=== PATIENT | female | born 1955 | race Caucasian/White ===

== ENCOUNTER 2017-05-28 11:59 | Observation (INO) | payer BC ==
[2017-05-28 12:35] LABS: #Basophils 0.1 thou/uL (0.0-0.2); #Eosinphils 0.1 thou/uL (0.0-0.7); #Lymphocytes 3.1 thou/uL (1.20-3.40); #Monocytes 0.5 thou/uL (0.11-0.59); #Neutrophils 5.4 thou/uL (1.40-6.50); %Basophils 0.9 % (0.0-1.0); %Eosinophils 1.3 % (0.0-10.0); %Lymphocytes 33.5 % (21.0-51.0); %Monocytes 5.7 % (0.0-10.0); Hematocrit 44.9 % (36.0-47.0); Mean Platelet Volume 7.3 fL (7.4-10.4); Red Blood Cell (RBC) Count 4.71 mill/uL (4.20-5.40); White Blood Cell (WBC) Count 9.3 thou/uL (4.8-10.8)
--- NOTE | 2017-05-28 12:49 | RAD ---
AP VIEW CHEST: 05/28/2017 HISTORY: Chest pain. FINDINGS: The lungs are well aerated. No evidence of active intrathoracic disease is seen. No evidence of ef fusions, pneumonia, or pneumothorax is seen. IMPRESSION: Unremarkable anterior-posterior view chest. POS: [facility]
[2017-05-28 13:02] LABS: ALT (SGPT) 21 U/L (8-55); AST (SGOT) 21 U/L (5-34); Alkaline Phosphatase 57 U/L (40-150); Anion Gap 14 mmol/L (10-20); BUN (Urea Nitrogen) 12 mg/dL (9.8-20.1); Bilirubin, Total 0.5 mg/dL (0.2-1.2); CK (CPK) 142 U/L (29-168); Calc. Creatinine Clearance 0 mL/min (70-130); Calcium 9.8 mg/dL (7.8-10.44); Carbon Dioxide 26 mmol/L (22-29); Chloride 103 mmol/L (98-107); Estimated GFR-MDRD 87; Globulin 3.4 g/dL (2.4-3.5); Protein, Total 7.5 g/dL (6.0-8.3)
[2017-05-28 13:04] LABS: Troponin I Less than 0.010 ng/mL (< 0.028)
[2017-05-28] MEDS ORDERED: Nitroglycerin 2% Ointment 1 INCH/1 GM Packet ONE (13:24)
[2017-05-28 15:17] VITALS: BMI 42.5
[2017-05-28] MEDS ORDERED: Calcium Carbonate 500 MG ChewTAB PO PRN (15:19)
[2017-05-28] MEDS ORDERED: Ondansetron HCl/PF 4 MG/2 ML Vial IVP PRN (15:19)
[2017-05-28] MEDS ORDERED: Nitroglycerin 0.4 MG TAB (25 Tab Bottle) PO PRN (15:19)
[2017-05-28] MEDS ORDERED: HumaLOG 300 UNITS/3 ML VIAL SC PRN (15:19)
[2017-05-28] MEDS ORDERED: Dextrose 5% in Water 1,000 ML IV PRN (15:19)
[2017-05-28] MEDS ORDERED: Acetaminophen 325 MG TAB PO PRN (15:19)
[2017-05-28] MEDS ORDERED: Ondansetron ODT 4 MG TAB PO PRN (15:19)
[2017-05-28] MEDS ORDERED: Dextrose 50% Abboject 50 ML SYRINGE SLOW IVP PRN (15:19)
[2017-05-28 15:53] LABS: Hemoglobin A1c 5.5 % (4.0-6.0)
[2017-05-28] MEDS ORDERED: ISOVUE-370 76%-LOCM 1 ML ONE (16:30)
[2017-05-28] MEDS ORDERED: FLU VACC QS2017-18 36 mo. & older 0.5 ML SYRINGE IM ONE (17:30)
--- NOTE | 2017-05-28 17:34 | CT ---
CTA OF THE THORAX INVOLVING IV CONTRAST PE PROTOCOL AND 3D REFORMATTED IMAGING 05/28/17 INDICATION: Chest pain. COMPARISON: Prior exam dated 02/23/14. FINDINGS: No central or segmental pulmonary embolus is evident. Heart and great vessels appear within normal l imits. There are mild vascular calcification involving the aortic arch. No air space consolidation, pleural effusion or pneumothorax is evident. The visualized upper abdomen demonstrates normal appearing adrenal glands. Remaining upper abdomen r eveals no acute abnormality. There is scattered degenerative and osteoarthritic change. IMPRESSION: No central or segmental pulmonary embolus demonstrated. POS: [facility]
[2017-05-28 19:39] LABS: Troponin I Less than 0.010 ng/mL (< 0.028)
--- NOTE | 2017-05-28 20:36 | HP-2 ---
CODE STATUS: FULL. PRIMARY CARE PHYSICIAN: [facility] call (Dr. Pettit). ATTENDING PHYSICIAN: Dr. Beach. HISTORIAN: Patient. CHIEF COMPLAINT: Chest pain and shortness of breath. HISTORY OF PRESENT ILLNESS: This is a 61-year-old female with past medical history of hypertension, type 2 diabetes, hyperlipidemia as well as tobacco abuse. She has on onset of chest pain prior to presentation in the ER. The patient states she was playing with her grandkids when she bent over, s he first noticed onset of chest pain with mild radiation to her left shoulder along with some shortn ess of breath. The chest pain lasted a few minutes at that time and each subsequent episode lasted 2-3 minutes and has resolved on its own. The patient denies any nausea, vomiting, fevers, chills, h eadaches or diaphoresis with these episodes. Patient received nitropatch and aspirin in the ER, did not notice much improvement or worsening with these interventions. Of note, the patient had a stre ss test performed in 2013 that was read as normal. The patient also had an echo with that same hosp italization and had a noted EF of 60% to 65%. Currently, the patient denies any chest pain, stating this has resolved on its own. PAST MEDICAL HISTORY: 1. Hypertension. 2. Type 2 diabetes. 3. Hyperlipidemia. 4. Depression. 5. Anemia. PAST SURGICAL HISTORY: 1. Cholecystectomy. 2. C-sections x2. ALLERGIES: No known drug allergies. MEDICATIONS: Lisinopril and hydrochlorothiazide 10/12.5 mg. FAMILY HISTORY: Significant for heart disease. Two brothers with MRI, status post CABG and stentin g. SOCIAL HISTORY: Endorses tobacco and alcohol use socially and still smokes less than half pack a we ek. Denies any drug use. REVIEW OF SYSTEMS: Ten-point review of systems was performed and negative except as per HPI above. PHYSICAL EXAMINATION: VITAL SIGNS: BP 145/60, pulse 78, respirations 18, T-max 98.3, pulse ox 98% on room air and current weight 108 kilograms. GENERAL: Alert and oriented x3, in no acute distress, obese female who is appropriately interactive . EYES: Pupils are equal, round and reactive to light. Extraocular movements are intact. Conjunctiv ae within normal limits. ENT: Nasal mucosa and oropharynx are within normal limits. NECK: Supple, without lymphadenopathy. CARDIOVASCULAR: Regular rate and rhythm. No murmurs, rubs or gallops. Radial pulses and pedal pul ses are present. RESPIRATORY: Normal effort. No retractions. Clear to auscultation bilaterally. SKIN: Warm and dry without cyanosis or lesions. ABDOMEN: Soft and nontender to palpation. Bowel sounds present. No mass or distention appreciated . EXTREMITIES: No clubbing, cyanosis or edema. MUSCULOSKELETAL: Structure and tone within normal limits. Strength is 5/5. Full range of motion n oted. NEUROLOGIC: No deficits. Sensation within normal limits. Cranial nerves II-XII are intact. GCS 1 5. PSYCHIATRIC: Appropriate. LABORATORY AND IMAGING DATA: CBC: White count 9.3, hemoglobin 14.7, hematocrit 44.7 and platelets 231. CMP: Sodium 129, potassium 3.9, chloride 103, bicarbonate 26, BUN 12, creatinine 0.69, glucose 93, calcium 9.8, total protein 7.5, albumin 4.1, AST is 21, ALT is 21, alkaline phosphatase 57 and total bilirubin 0.5. D-dimer 2.5. CK 142 and troponin less than 0.01 1. EKG showed normal sinus rhythm at rate of 72 beats per minute. No ST changes, no T-wave abnormaliti es. Chest x-ray shows no acute disease, potentially mild cardiomegaly. ASSESSMENT AND PLAN: This is a 61-year-old female presenting with chest pain and shortness of breat h. 1. Atypical chest pain. We will observe on telemetry and follow up CTA which ordered secondary to an elevated D-dimer ordered in the ER due to her complained of shortness of breath, which continued to trend cardiac enzymes. Check TSH, magnesium phosphatase, fasting lipid panel. Patient's heart s core is 3. JUANCARLOS risk score is 2. Her Wells score is 0. We will repeat EKG, nitrate p.r.n. for remi st pain, as well as aspirin and statin for risk stratification. 2. Hypertension. Continue home HCTZ combo. 3. Type 2 diabetes. Diabetic diet. Accu-Cheks before meals and at bedtime and check A1c. 4. Hyperlipidemia. Start on statin. 5. Prophylaxis. Sequential compression devices. DISPOSITION AND LENGTH OF HOSPITAL STAY: Less than 2 midnights. Symptomatic medications will be pr ovided. History and physical exam as well as management discussed with Dr. Beach.
[2017-05-29 05:19] LABS: Anion Gap 10 mmol/L (10-20); BUN (Urea Nitrogen) 13 mg/dL (9.8-20.1); Calc. Creatinine Clearance 148 mL/min (70-130); Calcium 9.5 mg/dL (7.8-10.44); Carbon Dioxide 27 mmol/L (22-29); Chloride 103 mmol/L (98-107); Cholesterol 165 mg/dl (< 200 Desired); Estimated GFR-MDRD 90; LDL Cholesterol, Calculated 104 mg/dL
--- NOTE | 2017-05-29 08:00 | PDOC.FM ---
- Subjective Subjective: Patient states she had a good night. She got some good rest. She denies any more of the chest pain or back pain she had yesterday. She denies sob, n/v/d, fevers, chills, or cough. She will be going for a stress test this AM. - Objective Vital Signs & Weight: Vital Signs (12 hours) Temp Pulse Resp BP Pulse Ox 05/29/17 04:30 98.6 F 86 18 119/61 95 05/29/17 01:04 94 L Weight Weight 105.318 kg I&O: 05/28/17 05/29/17 05/30/17 06:59 06:59 06:59 Intake Total 2049 Output Total 250 Balance 1800 Result Diagrams: 05/28/17 12:24 05/29/17 04:33 <Richie Ronquillo - Last Filed: 05/29/17 07:58> - Objective Vital Signs & Weight: Vital Signs (12 hours) Temp Pulse Resp BP BP Pulse Ox 05/29/17 08:38 70 118/62 05/29/17 07:45 98.2 F 70 16 118/62 93 L 05/29/17 04:30 98.6 F 86 18 119/61 95 05/29/17 01:04 94 L Weight Weight 105.318 kg I&O: 05/28/17 05/29/17 05/30/17 06:59 06:59 06:59 Intake Total 2049 Output Total 250 Balance 1800 Result Diagrams: 05/28/17 12:24 05/29/17 04:33 <Jonathan Marie - Last Filed: 05/29/17 11:47> Phys Exam - Physical Examination HEENT: PERRLA, moist MMs Neck: no nodes, no JVD Respiratory: no wheezing, clear to auscultation bilateral Cardiovascular: RRR, no significant murmur Gastrointestinal: soft, non-tender, no distention, positive bowel sounds Musculoskeletal: no edema, pulses present Neurological: non-focal, normal sensation, moves all 4 limbs Lymphatic: no nodes Psychiatric: normal affect, A&O x 3 <Richie Ronquillo - Last Filed: 05/29/17 07:58> Dx/Plan (1) Atypical chest pain Code(s): R07.89 - OTHER CHEST PAIN Status: Acute Plan: -Tele monitoring- Normal sinus rhythm over night. -Stress test this AM. -Pain resolved. -Continue ASA (2) HTN (hypertension) Code(s): I10 - ESSENTIAL (PRIMARY) HYPERTENSION Status: Acute Plan: Continue home meds. (3) DM2 (diabetes mellitus, type 2) Status: Acute Plan: Sliding scale insulin. (4) Anxiety Code(s): F41.9 - ANXIETY DISORDER, UNSPECIFIED Status: Acute Plan: -Not medicated. -Not currently having problems, will monitor. - Plan Plan: If stress test normal will be discharged today. <Richie Ronquillo - Last Filed: 05/29/17 07:58> Attending Addendum - Attending Addendum I personally evaluated the patient and discussed the management with Dr. Ronquillo. I agree with the History, Examination, Assessment and Plan documented above with any addition or exceptions noted below. Lungs: CTA, Cor: RRR no murmur, gallop click or rub. Left Chest wall is mildly tender especially over the left lower costal margin. Nuclear Stress is negative for ischemia. Will d/c home on Naproxen 500 bid and because of diabetes and hypertension start low dose statin therapy. And her lisinopril for HTN. Follow up with her PCP, Dr. Greer. [facility] <Jonathan Marie - Last Filed: 05/29/17 11:47>
[2017-05-29] MEDS ORDERED: Lisinopril/Hydrochlorothiazide 10 mg/12.5 mg Tablet PO SCH (09:00)
[2017-05-29] MEDS ORDERED: Aspirin 325 MG TAB PO SCH (09:00)
--- NOTE | 2017-05-29 11:19 | NM ---
CARDIAC SPECT: CLINICAL HISTORY: 61-year-old female with chest pain, hypertension, diabetes mellitus, dyslipidemia, and is a smoker. TECHNIQUE: A stress-only myocardial perfusion scan was performed following the intravenous administration of 31 mCi technetium-99m sestamibi. Pharmacologic stress with Adenosine was monitored and interpreted by Dr. Oakes. FINDINGS: Homogeneous tracer distribution is seen in the myocardial segments on the post stress images. GATED SPECT LVEF: 82%. WALL MOTION EXAM: Normal. IMPRESSION: Normal post stress myocardial perfusion scan. POS: [facility]
[2017-05-29] MEDS ORDERED: ADENOSINE 60 MG/20 ML VIAL ONE (12:00)
[2017-05-29 12:11] VITALS: BP 138/63; TEMP 98.3
--- NOTE | 2017-05-30 01:07 | DIS-2 ---
DATE OF ADMISSION: 05/28/2017 DATE OF DISCHARGE: 05/29/2017 RESIDENT: Dr. Ronquillo. ADMITTING ATTENDING: Dr. Beach. DISCHARGE ATTENDING: Dr. Marie. CONSULTATIONS: None. PROCEDURES: She did have a Pharm Cardiolite stress test. PRIMARY DIAGNOSES: 1. Costochondritis. 2. Hypertension. 3. Diabetes mellitus. 4. Anxiety. DISCHARGE MEDICATIONS: 1. Lisinopril/hydrochlorothiazide 10-12.5 mg. 2. Lovastatin 20 mg. 3. Naproxen 500 mg. DISCONTINUED MEDICATIONS: None. HISTORY OF PRESENT ILLNESS AND HOSPITAL COURSE: This is a 61-year-old female with a past medical history of hypertension, type 2 diabetes, hyperlipidemia as well as tobacco abuse. She has an onset of chest pain prior to presentation in the ER. The patient states she was playing with her grandkids when she bent over, and she first noticed the onset of chest pain with mild radiation to her left shoulder along with some shortness of breath. The chest pain lasted a few minutes at that time, and each subsequent episode lasted 2-3 minutes and has resolved on its own. The patient denies any nausea, vomiting, fevers, chills, headaches or diaphoresis with these episodes. The patient received Nitro-Patch and aspirin in the ER, did not notice much improvement or worsening with these interventions. Of note, the patient had a stress test performed in 2013 that was read as normal. The patient also had an echo at the same hospitalization, and had noted EF of 60%-65%. Currently, the patient denies any chest pain, stating this has resolved on its own. During the hospitalization, she went for the Cardiolite stress test, and that was read as normal again. The stress test shows homogeneous tracer distribution seen in the myocardial segments in the post-stress images. Gated SPECT LVEF 82%. Wall motion exam was normal and impression shows a normal post-stress myocardial perfusion scan. The patient was asymptomatic during this hospitalization, was always in normal sinus rhythm , had no more of the chest pain, did have some tenderness to palpation over her left thorax. We are working with the diagnosis of costochondritis, and we will put her on some nonsteroidal anti-inflammatory medications going forward to see if that will resolve the pain. The patient was then started on a lovastatin because of her risk factors for coronary artery disease, so she was started on low intensity statin therapy, lovastatin 20 mg, and she will follow up as an outpatient with her primary care provider. She did have labs, of note. She had troponins of less than 0.01 x3. Her triglycerides were 141. Her cholesterol was 165. Her LDL was 104. Her HDL was 33. She did have glucose of 112 and hemoglobin A1c of 5.5. The patient otherwise tolerated the hospitalization well with no complications. She will be discharged in satisfactory condition. DISPOSITION: Stable. DISCHARGE INSTRUCTIONS: 1. Location: She will be discharged home into her own care. 2. Diet: Will be a heart healthy and a diabetic diet. 3. Activity: Will be as tolerated without any restrictions. 4. Followup: Will be with her primary care physician, Dr. Pettit within 7 days to discuss the long-term treatment and her recent hospitalization. [facility]ECTOR
--- NOTE | 2017-05-30 06:28 | EKG ---
Test Reason : TIMED Blood Pressure : / mmHG Vent. Rate : 077 BPM Atrial Rate : 077 BPM P-R Int : 170 ms QRS Dur : 074 ms QT Int : 384 ms P-R-T Axes : 022 018 079 degrees QTc Int : 434 ms Normal sinus rhythm Normal ECG When compared with ECG of 23-FEB-2014 10:55, Nonspecific T wave abnormality no longer evident in Inferior leads Nonspecific T wave abnormality now evident in Lateral leads Confirmed by YUE MARTINEZ ([id number]) on 05/30/2017 6:27:56 AM Referred By: RODRIGO Confirmed By:YUE MARTINEZ
--- NOTE | 2017-06-20 13:05 | EKG ---
Test Reason : Blood Pressure : / mmHG Vent. Rate : 075 BPM Atrial Rate : 075 BPM P-R Int : 176 ms QRS Dur : 082 ms QT Int : 380 ms P-R-T Axes : 025 015 062 degrees QTc Int : 424 ms Normal sinus rhythm Normal ECG Confirmed by PLACIDO OLIVEIRA M.D. ([id number]), rewrite editor GAMALIEL CASTRO ([id number]) on 06/20/2017 1:04:54 PM Referred By: Confirmed By:PLACIDO OLIVEIRA M.D.
--- NOTE | 2017-07-29 12:51 | STRESS ---
Acquisition Time: 2017-05-29 09:16:02 Total Exercise Time: 00:04:00 Test Indications: CHEST PAIN Medications: Protocol: ADENOSINE Max HR: 093 BPM 58% of Pred: 160 BPM Max BP: 124/072 mmHG Max Work Load: 1.0 METS RESTING ECG: NORMAL SINUS RHYTHM AT 74 BPM WITH EARLY R-WAVE TRANSITION SYMPTOMS: NONE NORMAL BP RESPONSE ECTOPY: NONE ECG STRESS: NO SIGNIFICANT CHANGES INTERPRETATION: NEGATIVE ECG/AWAIT NUCLEAR IMAGES FOR DEFINITIVE DIAGNOSIS Confirmed by DR. Nan LEW ([id number]), editor farm journal CARLEY PADILLA ([id number]) on 07/29/2017 12:50:28 PM Referred By: MD Josefina VINCENT Confirmed By:DR. Nan LEW
== END 2017-05-29 12:58 | disposition home or self-care (01) ==
LOC: ERS 11:59 → 2SW 13:30
PROVIDERS: ADMIT Family Medicine; ATTEND Family Medicine
DX: M94.0 Chondrocostal junction syndrome [Tietze] (principal); I10 Essential (primary) hypertension; E11.9 Type 2 diabetes mellitus without complications; E78.5 Hyperlipidemia, unspecified; F41.9 Anxiety disorder, unspecified; F32.9 Major depressive disorder, single episode, unspecified; F17.210 Nicotine dependence, cigarettes, uncomplicated; Z79.899 Other long term (current) drug therapy; Z90.49 Acquired absence of other specified parts of digestive tract; Z98.891 History of uterine scar from previous surgery
CPT/HCPCS: 36415; 36416; 71010; 71275; 78452; 80048; 80053; 80061; 82553; 83036; 83735; 84100; 84443; 84484; 85025; 85379; 90471; 90682; 93005; 93010; 93017; 94760; A4216; A9500; G0008; G0378; J0153; Q2036

== ENCOUNTER 2017-10-14 20:30 | Outpatient (CLI) | payer BC | END 2017-10-14 20:31 | disposition home or self-care (01) | LOC: SLEEPLAB 20:30 | PROVIDERS: ATTEND Internal Medicine Critical Care Medicine | DX: G47.33 Obstructive sleep apnea (adult) (pediatric) (principal); I10 Essential (primary) hypertension | CPT/HCPCS: 95811 ==

== ENCOUNTER 2018-03-15 17:42 | Inpatient (IN) | payer BC ==
[~2018-03-15 17:42] MED LIST: ISOVUE-370 76%-LOCM 1 ML ONE
[2018-03-15 18:16] LABS: #Basophils 0.1 thou/uL (0.0-0.2); #Eosinphils 0.1 thou/uL (0.0-0.7); #Monocytes 0.6 thou/uL (0.11-0.59); #Neutrophils 6.9 thou/uL (1.40-6.50); %Basophils 0.7 % (0.0-1.0); %Eosinophils 1.3 % (0.0-10.0); %Monocytes 5.7 % (0.0-10.0); %Neutrophils 64.3 % (42.0-75.0); Hemoglobin 14.8 g/dL (12.0-16.0); Mean Corpuscular HGB CONC 36.4 g/dL (32.0-36.0); Mean Corpuscular Hemoglobin 33.3 pg (27.0-31.0); Mean Corpuscular Volume 91.4 fL (78.0-98.0); Mean Platelet Volume 7.5 fL (7.4-10.4); Platelet Count 223 thou/uL (130-400); RBC Distribution Width 11.9 % (11.5-14.5); Red Blood Cell (RBC) Count 4.44 mill/uL (4.20-5.40); White Blood Cell (WBC) Count 10.7 thou/uL (4.8-10.8)
[2018-03-15 18:22] LABS: INR-International Normal Ratio 0.9; PTT 32.3 SEC (22.9-36.1); Prothrombin Time 12.6 SEC (12.0-14.7)
--- NOTE | 2018-03-15 18:30 | RAD ---
PORTABLE CHEST: History: Chest pain. Arm numbness. Comparison: 05-28-17 FINDINGS: The heart is mildly enlarged. There is mild vascular engorgement, stable. No infiltrate or significan t effusion. IMPRESSION: Mild cardiomegaly and mild vascular engorgement. No acute change from prior exam. POS: [facility]
[2018-03-15 18:36] LABS: ALT (SGPT) 21 U/L (8-55); AST (SGOT) 18 U/L (5-34); Albumin 4.2 g/dL (3.4-4.8); Alkaline Phosphatase 66 U/L (40-150); Anion Gap 14 mmol/L (10-20); BUN (Urea Nitrogen) 12 mg/dL (9.8-20.1); Bilirubin, Total 0.3 mg/dL (0.2-1.2); CK (CPK) 89 U/L (29-168); Calc. Creatinine Clearance 0 mL/min (70-130); Calcium 9.7 mg/dL (7.8-10.44); Carbon Dioxide 25 mmol/L (23-31); Chloride 103 mmol/L (98-107); Estimated GFR-MDRD 77; Globulin 3.2 g/dL (2.4-3.5); Glucose 136 mg/dL (80-115); Potassium 3.8 mmol/L (3.5-5.1); Protein, Total 7.4 g/dL (6.0-8.3); Sodium 138 mmol/L (136-145)
[2018-03-15 18:40] LABS: CKMB 1.5 ng/mL (0-6.6); Troponin I Less than 0.010 ng/mL (< 0.028)
--- NOTE | 2018-03-15 19:59 | CT ---
CT HEAD WITHOUT CONTRAST: Technique: Multiple contiguous axial images were obtained through the head without IV enhancement. Indications: Stroke protocol. Left sided weakness. FINDINGS: Ventricles have normal size and position. No evidence of intracranial hemorrhage or mass. No edema. N o evidence of acute cortical infarct identified. IMPRESSION: Unremarkable head CT. No evidence of acute infarct. Findings relayed to Dr. Walden at 6:39 p.m. POS: [facility]
--- NOTE | 2018-03-15 20:16 | CT ---
CT ANGIO OF HEAD WITH CONTRAST: Technique: Multiple contiguous axial images were obtained through the head following cerebral angio p rotocol with multiplanar reconstruction and 3D post processing. Indication: Stroke protocol, left sided weakness. FINDINGS: Intracranial internal carotid arteries are patent and symmetric. Middle cerebral arteries are patent and symmetric. Anterior cerebral arteries appear patent and symme tric. Basilar artery is patent. The posterior cerebral arteries appear patent and symmetric. No evidence of focal stenosis or occlusion. IMPRESSION: 1. Unremarkable CT angio of head. CT ANGIO OF NECK: Technique: Multiple contiguous axial images were obtained through the neck follow angio protocol with multiplanar reconstruction and 3D post processing. Indications: Stroke protocol. Left side weakness. FINDINGS: No evidence of stenosis at the origin of the arch vessels. Both common carotid arteries appear unremarkable. Carotid bifurcation is unremarkable bilaterally. No significant atherosclerotic disease. Both internal carotid arteries are patent and symmetric. No stenosis. No evidence of dissection. The vertebral arteries are patent and symmetric with no evidence of stenosis or occlusion. No soft tissue abnormality identified. IMPRESSION: Unremarkable CT angio neck. Findings were called to the Emergency Department. Code CR POS: [facility]
[2018-03-15] MEDS ORDERED: Acetaminophen 325 MG TAB PO PRN (20:52)
[2018-03-15] MEDS ORDERED: Ondansetron HCl/PF 4 MG/2 ML Vial IVP PRN (20:52)
[2018-03-15] MEDS ORDERED: Atorvastatin Calcium 40 MG TAB PO SCH (21:00)
[2018-03-16 00:04] VITALS: BMI 44.1
[2018-03-16 05:24] LABS: #Basophils 0.1 thou/uL (0.0-0.2); #Eosinphils 0.1 thou/uL (0.0-0.7); #Lymphocytes 2.5 thou/uL (1.20-3.40); #Monocytes 0.5 thou/uL (0.11-0.59); #Neutrophils 4.3 thou/uL (1.40-6.50); %Basophils 0.8 % (0.0-1.0); %Eosinophils 1.7 % (0.0-10.0); %Lymphocytes 33.7 % (21.0-51.0); %Monocytes 6.4 % (0.0-10.0); %Neutrophils 57.4 % (42.0-75.0); Mean Corpuscular HGB CONC 33.9 g/dL (32.0-36.0); Mean Corpuscular Hemoglobin 31.3 pg (27.0-31.0); Mean Corpuscular Volume 92.3 fL (78.0-98.0); Mean Platelet Volume 7.6 fL (7.4-10.4); Platelet Count 203 thou/uL (130-400); RBC Distribution Width 12.1 % (11.5-14.5); Red Blood Cell (RBC) Count 4.45 mill/uL (4.20-5.40); White Blood Cell (WBC) Count 7.5 thou/uL (4.8-10.8)
[2018-03-16 05:46] LABS: Anion Gap 12 mmol/L (10-20); BUN (Urea Nitrogen) 11 mg/dL (9.8-20.1); Calc. Creatinine Clearance 157 mL/min (70-130); Calcium 9.6 mg/dL (7.8-10.44); Carbon Dioxide 26 mmol/L (23-31); Cardiac Risk 4.5 (Less than 4.5); Chloride 103 mmol/L (98-107); Cholesterol 161 mg/dl (< 200 Desired); Estimated GFR-MDRD Greater than 90; Glucose 124 mg/dL (80-115); HDL Cholesterol 36 mg/dL (>60 Neg Risk); LDL Cholesterol, Calculated 95 mg/dL; Potassium 3.8 mmol/L (3.5-5.1); Sodium 137 mmol/L (136-145); Triglycerides 150 mg/dL (Less than 150)
[2018-03-16] MEDS ORDERED: Dextrose 5% in Water 1,000 ML IV PRN (05:56)
[2018-03-16] MEDS ORDERED: HumaLOG 300 UNITS/3 ML VIAL SC PRN (05:56)
[2018-03-16] MEDS ORDERED: Dextrose 50% Abboject 50 ML SYRINGE SLOW IVP PRN (05:56)
--- NOTE | 2018-03-16 06:28 | HP ---
CODE STATUS: Full code. TIME OF EVALUATION: 8:10 p.m. PRIMARY CARE PHYSICIAN: Dr. Maria Elena Garay CHIEF COMPLAINT: Left side weakness and numbness. HISTORY OF PRESENT ILLNESS: This is a 62-year-old female patient with past medical history of obesit y, hyperlipidemia, diabetes type 2, hypertension, ____ , left-sided numbness, tingling, and weakness. The symptoms have been present since 7:00 a.m., have been on and off, but had been getting worse du ring the day. Around 4:00 p.m. she decided to go to the hospital to the Urgent Care. By the time of examination symptoms are still present. No clear triggers, no alleviating factors. Symptoms are mo derate. REVIEW OF SYSTEMS: CONSTITUTIONAL: No fever, no chills. Generalized weakness. RESPIRATORY: No cough, sputum production or shortness of breath. CARDIOVASCULAR: No chest pain, palpitations, shortness of breath. GASTROINTESTINAL: No nausea, no vomiting or diarrhea, no abdominal pain. PRISON PSYCHIATRIST: The patient has left side weakness, tingling or numbness. No headache. : No pain on urination. EXTREMITIES: No leg swelling. All other systems were reviewed and are negative except for the findings mentioned above. PAST MEDICAL HISTORY: Hypertension, diabetes, hyperlipidemia. SOCIAL HISTORY: The patient drinks socially rarely, smokes cigarettes. No drug use. PSYCHIATRIC HISTORY: Anxiety and depression. FAMILY HISTORY: The patient has cancer on both sides. PAST SURGICAL HISTORY: The patient has a lumpectomy, cholecystectomy, . ALLERGIES: No known drug allergies. MEDICATIONS: Lisinopril, hydrochlorothiazide. PHYSICAL EXAMINATION: VITAL SIGNS: On presentation, blood pressure 136/81, heart rate 99, respiratory rate was 18, tempera ture 98.3, pain 3/10, oxygen saturation 94% on room air. GENERAL: The patient is alert, oriented, no acute distress. Eyes; moist conjunctivae, moist oral mu cosa. Anicteric. NECK: No JVD. RESPIRATORY: Bilateral air entry. No rales, no wheezing. Symmetric expansion. CARDIOVASCULAR: Normal rate and regular rhythm, no murmurs, no gallop, no edema. ABDOMEN: Soft, normal bowel sounds. MUSCULOSKELETAL: Baseline range of motion and strength. No tenderness. SKIN: Warm and intact. No pallor, no rash, no redness. NEUROLOGIC: Left-sided weakness, numbness, tingling, strength is 4/5. Cranial nerves; sensory intac t. PSYCHIATRIC: The patient is in a good mood. No anxiety, oriented, normal judgment. EKG was reviewed. The patient has a normal sinus rhythm with a rate of 90, no evidence of any acute ischemic changes. RADIOLOGY: Head CT negative. CT angio of the head was negative. LABORATORY: The patient has white count of 10, hemoglobin 14, MCV 91, platelet count 123. Coagulati on is normal. Sodium 138, potassium 3.8, chloride 103, carbon dioxide 25, anion gap 14, BUN 12, crea tinine 0.7, GFR 77, glucose 136. LFTs were normal. Troponin was negative. ASSESSMENT AND PLAN: The patient will be placed in the hospital for the following medical problems. 1. Transient ischemic attack versus stroke. The patient had left-sided weakness, that has lasted fo r less than 24 hours, we will do a stroke protocol, MRI, ____ consulted, will have treatment accordin gly. 2. Uncontrolled diabetes. We will reconcile home medications. The patient relates to suboptimal co ntrol. 3. Uncontrolled hypertension, systolic blood pressure 157, we will allow permissive hypertension due to the new neurological symptoms. 4. Risk assessment; high risk patient due to neurological impairment. 5. Deep venous thrombosis prophylaxis.
[2018-03-16] MEDS ORDERED: Enoxaparin Sodium 40 MG/0.4 ML SYRINGE SC SCH (09:00)
[2018-03-16] MEDS ORDERED: Aspirin 325 mg Enteric Coated Tablet PO SCH (09:00)
--- NOTE | 2018-03-16 10:25 | MRI ---
MRI BRAIN NONCONTRAST: Clinical indication: TIA. Comparison: Head CT from previous day. FINDINGS: There is no evidence of ventriculomegaly, mass effect, midline shift or acute territorial infarction. No intracranial hemorrhage susceptibility. There is mild chronic microvascular ischemic disease invo lving the cerebral white matter. The imaged skull base flow voids are patent. IMPRESSION: 1. There are no acute intracranial abnormalities. 2. Mild chronic microvascular ischemic disease. POS: [facility]
[2018-03-16 11:46] VITALS: BP 149/86; TEMP 97.8
--- NOTE | 2018-03-16 12:10 | DIS ---
PRIMARY CARE PHYSICIAN: Dr. Kizzy Pettit DATE OF ADMISSION: 03/15/2018 DATE OF DISCHARGE: 03/16/2018 DISCHARGE DIAGNOSES: 1. Transient ischemic attack. 2. Diabetes mellitus type 2 without mention of complication. 3. Essential hypertension. CONSULTATIONS: Neurology. PROCEDURES: MRI of the brain that showed chronic microvascular ischemic changes, but no acute abnorm alities. HISTORY AND PHYSICAL: Ms. Younger is a 62-year-old severely obese female who presented in the emergenc y department for evaluation on 03/15/2018 for complaints of left face numbness and left arm numbness, left hand numbness, left leg numbness and left foot numbness. The symptoms are worsening, they were initially stuttering, but were constant. She presented to the emergency department for further evaluation. She had presented initially to the Urgent Care that was present when she woke up at 0700, but did not present to Urgent Care until about 1500. Workup initially at the Urgent Care was negative. She was transferred to our facility for further ev aluation. In our ER, she had a CT angiogram and a CT of the brain noncontrasted that were unremarkable. Anand garcia subsequently called for admission for workup. HOSPITAL COURSE: The patient was seen by Dr. Hernandez around 1999, the patient was placed in observa tion, she was started on a full dose aspirin 325 mg daily, and Lipitor. She was watched overnight, her symptoms resolved, though this morning she has a pinprick type sensati on over her left upper scalp. MRI of the brain was done today that was negative for acute abnormalit y, but showed some chronic microvascular ischemic changes. She was seen by PT, OT and ST and cleared and she was otherwise stable for discharge with outpatient followup. She was being seen by Neurolog y, awaiting their approval for discharge. PHYSICAL EXAMINATION: The patient was seen and examined on the day of discharge. Discharge plan and disposition was discussed with the patient face to face at the bedside. DISCHARGE MEDICATIONS: 1. New medication; aspirin 325 mg daily. Prescription sent. 2. Lipitor 40 mg p.o. at bedtime. Prescription sent. DISCONTINUED MEDICATION: 1. Lovastatin 20 mg daily. HOME MEDICATIONS TO CONTINUE: Lisinopril/HCTZ 10/12.5 one p.o. daily. DISCHARGE CONDITION: Stable. DISPOSITION: She will be discharged to home via private vehicle. DISCHARGE ACTIVITY: As tolerated. FOLLOWUP APPOINTMENTS: 1. Primary care physician within a week. 2. Neurology per their clinic.
[2018-03-16] MEDS ORDERED: Lovastatin 20 MG TAB PO SCH (17:00)
== END 2018-03-16 12:55 | disposition home or self-care (01) | DRG 69 ==
LOC: ERS 17:42 → 2SE 19:50
PROVIDERS: ADMIT Hospitalist; ATTEND Hospitalist
DX: G45.9 Transient cerebral ischemic attack, unspecified (principal); Z68.41 Body mass index [BMI] 40.0-44.9, adult; E11.65 Type 2 diabetes mellitus with hyperglycemia; E78.5 Hyperlipidemia, unspecified; I10 Essential (primary) hypertension; E66.9 Obesity, unspecified; F41.8 Other specified anxiety disorders; F17.210 Nicotine dependence, cigarettes, uncomplicated
CPT/HCPCS: 36415; 36416; 70450; 70496; 70498; 70551; 71045; 80048; 80053; 80061; 82553; 84484; 85025; 85610; 85730; 93005; 93306; 94760; 99406; J1650

== ENCOUNTER 2019-03-11 17:22 | Observation (INO) | payer BC ==
[2019-03-11 18:06] LABS: #Basophils 0.1 thou/uL (0.0-0.2); #Eosinphils 0.1 thou/uL (0.0-0.7); #Lymphocytes 2.9 thou/uL (1.20-3.40); #Monocytes 0.7 thou/uL (0.11-0.59); #Neutrophils 4.9 thou/uL (1.40-6.50); %Basophils 0.8 % (0.0-1.0); %Eosinophils 1.4 % (0.0-10.0); %Lymphocytes 33.2 % (21.0-51.0); %Monocytes 7.7 % (0.0-10.0); %Neutrophils 56.9 % (42.0-75.0); Hemoglobin 13.4 g/dL (12.0-16.0); Mean Corpuscular HGB CONC 33.5 g/dL (32.0-36.0); Mean Corpuscular Hemoglobin 30.7 pg (27.0-31.0); Mean Corpuscular Volume 91.5 fL (78.0-98.0); Mean Platelet Volume 8.5 fL (7.4-10.4); Platelet Count 229 thou/uL (130-400); RBC Distribution Width 12.1 % (11.5-14.5); Red Blood Cell (RBC) Count 4.37 mill/uL (4.20-5.40); White Blood Cell (WBC) Count 8.7 thou/uL (4.8-10.8)
--- NOTE | 2019-03-11 18:15 | CT ---
Exam: CT brain PROVIDED CLINICAL HISTORY: Right-sided weakness COMPARISON: 03/15/2018 FINDINGS: The ventricular system is normal in size and morphology. No evidence for intracranial hemorrhage or mass effect. The extracranial soft tissues and osseous structures demonstrate no evidence for an acute abnormality. IMPRESSION: No evidence for intracranial hemorrhage or mass effect.
[2019-03-11 18:26] LABS: ALT (SGPT) 19 U/L (8-55); AST (SGOT) 18 U/L (5-34); Alkaline Phosphatase 55 U/L (40-150); Anion Gap 14 mmol/L (10-20); BUN (Urea Nitrogen) 13 mg/dL (9.8-20.1); Bilirubin, Total 0.3 mg/dL (0.2-1.2); CK (CPK) 107 U/L (29-168); Calc. Creatinine Clearance 0 mL/min (70-130); Calcium 10.2 mg/dL (7.8-10.44); Carbon Dioxide 25 mmol/L (23-31); Chloride 104 mmol/L (98-107); Estimated GFR-MDRD 81; Globulin 2.9 g/dL (2.4-3.5); Glucose 112 mg/dL (80-115); Potassium 3.8 mmol/L (3.5-5.1); Protein, Total 6.9 g/dL (6.0-8.3); Sodium 139 mmol/L (136-145)
[2019-03-11] MEDS ORDERED: hydrALAZINE 20 MG/ML VIAL SLOW IVP PRN (19:50)
[2019-03-11] MEDS ORDERED: Labetalol HCl 100 MG/20 ML VIAL SLOW IVP PRN (19:50)
[2019-03-11] MEDS ORDERED: Aspirin 325 MG TAB PO SCH (20:00)
[2019-03-11 20:21] VITALS: BMI 43.7
[2019-03-11] MEDS: Atorvastatin Calcium 40 MG TAB PO SCH (21:46)
--- NOTE | 2019-03-11 21:52 | HP ---
CHIEF COMPLAINT: Right upper extremity weakness and numbness. HISTORY OF PRESENT ILLNESS: Ms. Younger is a pleasant 63-year-old female with past medical history significant for obesity with a BMI of 44, prediabetes, hypertension, and hyperlipidemia, who presented to the hospital with complaints of right upper extremity weakness and paresthesia, which began yesterday evening. The patient reports also a "throbbing sensation," although had no apparent pain. Her symptoms continued, and when she woke up this morning, she had some continued tingling in the right upper extremity and so presented to the emergency department for further workup and treatment. Workup on arrival included a brain CT, which was negative for acute intracranial hemorrhage or mass. Her NIH 0 in the emergency department. The patient was given aspirin. Her EKG showed sinus rhythm with heart rate in the 80s. REVIEW OF SYSTEMS: The patient reports some bilateral lower extremity pain, and pinprick sensation, which does seem very consistent with diabetic peripheral neuropathy. She has had some occasional neck pain along with occasional headache. Otherwise, her 12-point review of systems performed is negative. She has had no chest pain. No shortness of breath. No fever, chills, or cough. She denies any sick contacts. PAST MEDICAL HISTORY: Significant for hypertension, hyperlipidemia, and prediabetes. SOCIAL HISTORY: The patient states that she drinks alcohol occasionally and rarely will smoke cigarettes. She denies any illicit drug use. 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 FAMILY HISTORY: Negative for premature cardiovascular disease. PAST SURGICAL HISTORY: Cholecystectomy in the 70s, remote history of x2, and lumpectomy. ALLERGIES: NO KNOWN DRUG ALLERGIES. HOME MEDICATIONS: 1. Aspirin 325 mg daily. 2. Lisinopril/hydrochlorothiazide 10/12.5 mg 1 tablet daily. PHYSICAL EXAMINATION: VITAL SIGNS: Blood pressure 139/85, heart rate is 89, O2 saturation is 96% on room air, and respirations are 16. GENERAL: The patient is an obese female, resting comfortably in bed, in no acute distress. HEENT: Head is atraumatic and normocephalic. Mucous membranes are moist. NECK: Supple. Trachea is midline. No JVD. CV: S1 and S2. Regular rate and rhythm. No appreciable murmurs, rubs, or gallops. LUNGS: Regular respiratory rate and pattern. Clear to auscultation bilaterally. ABDOMEN: Positive bowel sounds. Soft, nontender, and obese. EXTREMITIES: No lower extremity pitting edema, +2 DP pulses bilaterally. SKIN: Warm and dry. NEUROLOGIC: Cranial nerves 2 through 12 are grossly intact. The patient is nonfocal. LABORATORY DATA: White blood cell count 8.7, hemoglobin 13.4, hematocrit 40.0, and platelet count is 229. Sodium 139, potassium 3.8, BUN 13, and creatinine 0.73. AST, ALT, alkaline phosphatase all within normal limits. Troponin was negative. BNP is 11.2. ASSESSMENT: 1. Intermittent right upper extremity weakness and paresthesia. We will rule out cerebrovascular accident, questionable transient ischemic attack versus cervical radiculopathy. 2. Prediabetes. 3. Hypertension. 4. Hyperlipidemia. 5. Obesity. 6. Intermittent tobacco use. PLAN: At this time, we will proceed with CVA rule out. The patient will need brain MRI given her risk factors for ischemic stroke. We will obtain echocardiogram and carotid Dopplers. We will get a physical therapy consult as well. I will continue the patient's home dose of aspirin and we will add statin. We will obtain fasting lipid profile in the morning. We will also obtain hemoglobin A1c. I have discussed with the patient that if her stroke workup is negative, she may need further imaging of her neck to rule out a cervical radiculopathy. Further recommendations based on findings of noninvasive testing. Job ID: [id number]
[2019-03-12] MEDS: Acetaminophen 325 MG TAB PO PRN ×2 (05:37→12:57)
[2019-03-12 06:01] LABS: Hemoglobin A1c 5.9 % (4.0-6.0)
[2019-03-12 06:15] LABS: Cardiac Risk 4.8 (Less than 4.5)
--- NOTE | 2019-03-12 07:43 | ULT ---
BILATERAL CAROTID DUPLEX ULTRASOUND: HISTORY: Neurologic deficit, stroke TECHNIQUE: Grayscale, color-flow and spectral Doppler ultrasound imaging of the extracranial carotid artery syst ems was performed bilaterally. FINDINGS: No significant plaque formation or intimal wall thickening is seen. The peak systolic velocity in the right ICA measures 101 cm/s. The peak systolic velocity in the left ICA measures 81 cm/s. Vertebral flow: antegrade, bilaterally. IMPRESSION: No hemodynamically significant stenosis of Both ICAs.
[2019-03-12] MEDS: Aspirin 325 mg Enteric Coated Tablet PO SCH (08:52)
[2019-03-12] MEDS: Lisinopril/Hydrochlorothiazide 10 mg/12.5 mg Tablet PO SCH (08:52)
--- NOTE | 2019-03-12 10:22 | MRI ---
MRI Brain WO Con: 03/12/2019 7:51 PM CLINICAL HISTORY: Stroke, left-sided numbness. COMPARISON: MRI brain 03/16/2018 FINDINGS: Extra axial spaces: Normal in size and morphology for the patient's age. Acute infarction: None. Ventricular system: Normal in size and morphology for the patient's age. Basal cisterns: Normal. Cerebral parenchyma: Microvascular ischemic changes. Midline shift: None. Cerebellum: Normal. Brainstem: Normal. Paranasal sinuses:Scattered mucosal thickening. IMPRESSION:No acute intracranial abnormality. Mild chronic microvascular ischemic disease.
--- NOTE | 2019-03-12 11:59 | MRI ---
MRI CERVICAL SPINE WITHOUT CONTRAST: HISTORY: Right arm pain. Stroke. COMPARISON: None. FINDINGS: The cerebellar tonsils terminate at the level of the foramen magnum. No marrow infiltrative process. No cervical adenopathy. The paraspinal musculature is normal. Levels are as follows: C2-C3: Low grade uncinate process hypertrophy. No neural foramina or spinal canal narrowing. C3-C4: Mild disk desiccation. No neural foramina or spinal canal narrowing. C4-C5: Mild disk desiccation. Low grade uncinate process hypertrophy. No neural foramina or spinal canal narrowing. C5-C6: There is central and bilateral paracentral small posterior disk protrusion. Some low grade e ffacement within the CSF space. Spinal canal measures approximately 8 mm. Mild uncinate process hyp ertrophy. Mild left neural foraminal narrowing. C6-C7: Moderate degenerative disk space height loss. Circumferential disk osteophyte complex. Ther e is effacement of the ventral CSF space, with the spinal canal measuring approximately 8 mm. There does appear to be cord abutment. Mild facet arthropathy. Moderate bilateral neural foraminal narrow ing. IMPRESSION: Moderate spondylosis of the lower cervical spine, as described. POS: CET
--- NOTE | 2019-03-12 15:40 | PDOC.PN ---
- Subjective Encounter Start Date: 03/12/19 Encounter Start Time: 11:30 Subjective: Patient examined, reports arm is no longer painful, reports it is -: intermittent. Denies new complaints - Objective Vital Signs & Weight: Vital Signs (12 hours) Temp Pulse Pulse Pulse Resp BP BP 03/12/19 11:00 98.0 F 76 18 03/12/19 08:52 84 140/74 03/12/19 08:20 76 81 111/83 03/12/19 07:00 97.8 F 75 18 03/12/19 03:52 98.1 F 84 20 BP BP Pulse Ox 03/12/19 11:00 111/55 L 93 L 03/12/19 08:52 03/12/19 08:20 140/74 03/12/19 07:00 140/72 92 L 03/12/19 03:52 132/66 94 L Weight Weight 108.522 kg Result Diagrams: 03/11/19 17:53 03/11/19 17:34 Phys Exam - Physical Examination HEENT: PERRLA, moist MMs Neck: no nodes Respiratory: clear to auscultation bilateral Cardiovascular: RRR Gastrointestinal: soft, non-tender, positive bowel sounds Musculoskeletal: no edema, pulses present Neurological: normal sensation, moves all 4 limbs Lymphatic: no nodes Psychiatric: normal affect, A&O x 3 Skin: normal turgor Dx/Plan (1) Numbness and tingling of right upper extremity Code(s): R20.0 - ANESTHESIA OF SKIN; R20.2 - PARESTHESIA OF SKIN Status: Acute (2) Anxiety Code(s): F41.9 - ANXIETY DISORDER, UNSPECIFIED Status: Chronic (3) DM2 (diabetes mellitus, type 2) Status: Chronic (4) HLD (hyperlipidemia) Code(s): E78.5 - HYPERLIPIDEMIA, UNSPECIFIED Status: Chronic (5) HTN (hypertension) Code(s): I10 - ESSENTIAL (PRIMARY) HYPERTENSION Status: Chronic - Plan cont current plan of care, PT/OT Brain/cervical spine MRI with no acute findings -: Awaiting Echo reading, OT evaluation -: carotid doppler- NAD, A1C = 5.9 -: Will continue to monitor, most likely DC in AM * .
[2019-03-12] MEDS: Atorvastatin Calcium 40 MG TAB PO SCH (21:32)
[2019-03-13] MEDS: Acetaminophen 325 MG TAB PO PRN (09:14)
[2019-03-13] MEDS: Aspirin 325 mg Enteric Coated Tablet PO SCH (09:14)
[2019-03-13] MEDS: Lisinopril/Hydrochlorothiazide 10 mg/12.5 mg Tablet PO SCH (09:15)
[2019-03-13 11:36] VITALS: BP 92/52; TEMP 98.3
== END 2019-03-13 13:15 | disposition home or self-care (01) ==
LOC: ERS 17:22 → 2SE 18:26
PROVIDERS: ADMIT Internal Medicine; ATTEND Internal Medicine
DX: R53.1 Weakness (principal); R20.2 Paresthesia of skin; E11.9 Type 2 diabetes mellitus without complications; I10 Essential (primary) hypertension; E66.9 Obesity, unspecified; F17.210 Nicotine dependence, cigarettes, uncomplicated; E78.5 Hyperlipidemia, unspecified; F32.9 Major depressive disorder, single episode, unspecified; F41.9 Anxiety disorder, unspecified; M47.812 Spondylosis without myelopathy or radiculopathy, cervical region; M48.02 Spinal stenosis, cervical region; Z68.41 Body mass index [BMI] 40.0-44.9, adult; Z79.82 Long term (current) use of aspirin; Z79.899 Other long term (current) drug therapy
CPT/HCPCS: 36415; 70450; 70551; 72141; 80053; 80061; 82550; 83036; 83880; 84484; 85025; 93306; 93880; G0378

== ENCOUNTER 2020-09-13 15:18 | Emergency (ER) | payer BC, SELFPAY ==
--- NOTE | 2020-09-13 16:07 | RAD ---
Chest one view HISTORY: Chest pain. COMPARISON: 03/15/2018. FINDINGS: Cardiac silhouette is magnified and upper limits of normal.. Pulmonary vasculature upper li mits of normal. Mediastinum is midline. No lobar consolidation or evidence of pneumothorax. IMPRESSION : No acute abnormalities are demonstrated.
--- NOTE | 2020-09-13 16:21 | CT ---
Exam: Head CT without contrast HISTORY: History of CVA and TIA. Right-sided weakness. COMPARISON: 03/11/2019 FINDINGS: Hemorrhage: No intraparenchymal hemorrhage or extra-axial hematoma. Brain parenchyma: Cortical garcia-white matter differentiation is preserved. No mass effect or midline shift. Basilar cisterns are patent. Ventricular system: Ventricles and sulci are patent and symmetric. Calvarium: Intact. Sinuses and mastoid air cells: Adequate aeration. IMPRESSION: No acute intracranial process.
[2020-09-13 16:23] LABS: #Basophils 0.1 thou/uL (0.0-0.2); #Lymphocytes 3.3 thou/uL (1.20-3.40); #Monocytes 0.9 thou/uL (0.11-0.59); #Neutrophils 7.2 thou/uL (1.40-6.50); %Basophils 0.7 % (0.0-1.0); %Eosinophils 0.4 % (0.0-10.0); %Lymphocytes 28.4 % (21.0-51.0); %Monocytes 7.6 % (0.0-10.0); %Neutrophils 62.8 % (42.0-75.0); Hemoglobin 14.2 g/dL (12.0-16.0); Mean Corpuscular HGB CONC 35.3 g/dL (32.0-36.0); Mean Corpuscular Hemoglobin 32.7 pg (27.0-31.0); Mean Corpuscular Volume 92.5 fL (78.0-98.0); Mean Platelet Volume 8.8 fL (7.4-10.4); Platelet Count 201 thou/uL (130-400); Red Blood Cell (RBC) Count 4.34 mill/uL (4.20-5.40); White Blood Cell (WBC) Count 11.5 thou/uL (4.8-10.8)
[2020-09-13 16:44] LABS: ALT (SGPT) 27 U/L (8-55); AST (SGOT) 25 U/L (5-34); Albumin 4.1 g/dL (3.4-4.8); Alkaline Phosphatase 48 U/L (40-110); Anion Gap 13 mmol/L (10-20); BUN (Urea Nitrogen) 16 mg/dL (9.8-20.1); Bilirubin, Total 0.4 mg/dL (0.2-1.2); Calc. Creatinine Clearance 0 mL/min (70-130); Calcium 9.5 mg/dL (7.8-10.44); Carbon Dioxide 26 mmol/L (23-31); Chloride 102 mmol/L (98-107); Globulin 3.5 g/dL (2.4-3.5); Glucose 99 mg/dL (80-115); Potassium 4.4 mmol/L (3.5-5.1); Protein, Total 7.6 g/dL (6.0-8.3); Sodium 137 mmol/L (136-145)
[2020-09-13] MEDS ORDERED: HYDROcodone/Acetaminophen 5/325 mg Tablet ONE (17:48)
[2020-09-13] MEDS ORDERED: Ondansetron ODT 4 MG TAB ONE (17:49)
[2020-09-13] MEDS ORDERED: Cyclobenzaprine 10 MG TAB ONE (17:49)
== END 2020-09-13 18:59 | disposition home or self-care (01) ==
LOC: ERS 15:18
DX: M54.6 Pain in thoracic spine (principal); M25.511 Pain in right shoulder; M79.621 Pain in right upper arm; I10 Essential (primary) hypertension; E78.5 Hyperlipidemia, unspecified; E11.40 Type 2 diabetes mellitus with diabetic neuropathy, unspecified; F17.210 Nicotine dependence, cigarettes, uncomplicated; Z79.82 Long term (current) use of aspirin; Z79.899 Other long term (current) drug therapy
CPT/HCPCS: 70450; 71045; 80053; 84484; 85025; 93005; Q0162

== ENCOUNTER 2022-04-19 09:40 | Outpatient (CLI) | payer MEDICARE | END 2022-04-19 09:41 | disposition home or self-care (01) | LOC: LABBT 09:40 | PROVIDERS: ATTEND Internal Medicine Gastroenterology | DX: Z20.822 Contact with and (suspected) exposure to COVID-19 (principal) | CPT/HCPCS: 87811 ==

== ENCOUNTER 2022-04-24 07:05 | Day surgery (SDC) | payer MEDICARE ==
[2022-04-22 11:40] VITALS: BMI 44.8
[2022-04-24] MEDS ORDERED: Lidocaine 1% MPF 2 ML VIAL ONE (09:12)
[2022-04-24] MEDS ORDERED: PROPOFOL 200 MG/20 ML VIAL ONE (09:12)
[2022-04-24] MEDS ORDERED: Acetaminophen 500 MG TAB ONE (10:59)
== END 2022-04-24 11:52 | disposition home or self-care (01) ==
LOC: SDC 07:05
PROVIDERS: ATTEND Internal Medicine Gastroenterology
PROC: 0DB98ZX Excision of Duodenum, Via Natural or Artificial Opening Endoscopic, Diagnostic (ICD-10-PCS; principal; 2022-04-24)
PROC: 0DB78ZX Excision of Stomach, Pylorus, Via Natural or Artificial Opening Endoscopic, Diagnostic (ICD-10-PCS; 2022-04-24)
PROC: 0DBH8ZX Excision of Cecum, Via Natural or Artificial Opening Endoscopic, Diagnostic (ICD-10-PCS; 2022-04-24)
PROC: 0DBL8ZX Excision of Transverse Colon, Via Natural or Artificial Opening Endoscopic, Diagnostic (ICD-10-PCS; 2022-04-24)
DX: D12.0 Benign neoplasm of cecum (principal); D12.3 Benign neoplasm of transverse colon; K29.50 Unspecified chronic gastritis without bleeding; K20.80 Other esophagitis without bleeding; R13.10 Dysphagia, unspecified; K57.30 Diverticulosis of large intestine without perforation or abscess without bleeding; K64.5 Perianal venous thrombosis; E78.5 Hyperlipidemia, unspecified; I10 Essential (primary) hypertension; G47.30 Sleep apnea, unspecified; E66.01 Morbid (severe) obesity due to excess calories; Z68.41 Body mass index [BMI] 40.0-44.9, adult; Z86.010 Personal history of colon polyps; Z79.899 Other long term (current) drug therapy
CPT/HCPCS: 88305; J2704

== ENCOUNTER 2022-07-01 08:37 | Outpatient (CLI) | payer MEDICARE | END 2022-07-01 08:38 | disposition home or self-care (01) | LOC: RAD 08:37 | PROVIDERS: ATTEND Physician Assistant Medical | DX: R13.10 Dysphagia, unspecified (principal) | CPT/HCPCS: 74220 ==

== ENCOUNTER 2023-09-10 22:49 | Emergency (ER) | payer MEDICARE, OTHER ==
[2023-09-11 01:49] LABS: SARS-CoV-2 NAA Rapid Test Not Detected (NotDetected)
== END 2023-09-11 02:27 | disposition home or self-care (01) ==
LOC: ERS 22:49
DX: J06.9 Acute upper respiratory infection, unspecified (principal); I10 Essential (primary) hypertension; E11.40 Type 2 diabetes mellitus with diabetic neuropathy, unspecified; Z79.82 Long term (current) use of aspirin; Z79.899 Other long term (current) drug therapy
CPT/HCPCS: 99283

== ENCOUNTER 2025-08-18 19:31 | Emergency (ER) | payer OTHER | END 2025-08-18 20:27 | disposition home or self-care (01) | LOC: ERS 19:31 | DX: J11.00 Influenza due to unidentified influenza virus with unspecified type of pneumonia (principal); E11.40 Type 2 diabetes mellitus with diabetic neuropathy, unspecified; I10 Essential (primary) hypertension; Z79.899 Other long term (current) drug therapy | CPT/HCPCS: 71045; 87428 ==